=== PATIENT | male | born 1960 | race Caucasian/White ===

== ENCOUNTER 2016-07-08 08:53 | Emergency (ER) | payer BC, OTHER ==
[2016-07-08] MEDS ORDERED: TORAdol 30 mg Injection IM ONE (09:09)
[2016-07-08] MEDS ORDERED: TORAdol 30 mg Injection ONE (09:12)
--- NOTE | 2016-07-08 09:15 | ERPHSYRPT ---
- History of Present Illness Time Seen by Provider: 07/08/16 09:05 Source: patient Exam Limitations: clinical condition Patient Subjective Stated Complaint: back pain/lt hip pain Triage Nursing Assessment: states his city truck has caused him lower back pain/ lt hip pain radiating to outer lt upper leg. no injury. no bruising or sweleling noted. states since last night pain has not relieved Physician History: PATIENT WITH A HISTORY OF HYPERTENSION COMPLAINS OF ACUTE ONSET OF LOW BACK PAIN FOR 5 DAYS WITH RADIATION TO LEFT HIP. DENIES TRAUMA, INJURY, LOSS OF BOWEL OR BLADDER DYSFUNCTION. ADMITS TO HEAVY LIFTING DAILY. Timing/Duration: day(s) Method of Injury: lifting Quality: radiating, sharp Back Pain Location: lumbar spine Back Pain Radiation: buttocks (LEFT HIP) Severity of Pain-Max: moderate Severity of Pain-Current: moderate Modifying Factors: Improves With: movement Associated Symptoms: muscle spasms, other (RADIATION PAIN TO LEFT HIP) Previous symptoms: no prior history Allergies/Adverse Reactions: No Known Drug Allergies Allergy (Unverified 07/08/16 08:58) Home Medications: Lisinopril 20 mg [Zestril 20 MG] 20 mg PO DAILY 07/08/16 [History] Hx Tetanus, Diphtheria Vaccination/Date Given: Yes Hx Influenza Vaccination/Date Given: No Hx Pneumococcal Vaccination/Date Given: No Immunizations Up to Date: Yes - Review of Systems Constitutional: No Symptoms, No Fever, No Chills Eyes: No Symptoms Ears, Nose, & Throat: No Symptoms Respiratory: No Cough, No Dyspnea Cardiac: No Chest Pain, No Edema, No Syncope Abdominal/Gastrointestinal: No Abdominal Pain, No Nausea, No Vomiting, No Diarrhea Genitourinary Symptoms: No Dysuria Musculoskeletal: Back Pain Skin: No Rash Neurological: No Dizziness, No Focal Weakness, No Sensory Changes Psychological: No Symptoms Endocrine: No Symptoms All Other Systems: Reviewed and Negative - Past Medical History Pertinent Past Medical History: Yes Cardiac History: High Cholesterol, Hypertension - Past Surgical History Past Surgical History: No - Social History Smoking Status: Current every day smoker Exposure to second hand smoke: No Drug Use: none Patient Lives Alone: No - Nursing Vital Signs Temperature: 97.6 F Temperature Source: Oral Pulse Rate: 67 Respiratory Rate: 18 Pain Intensity: 10 - Physical Exam General Appearance: no apparent distress, alert Eye Exam: PERRL/EOMI, eyes nml inspection Neck Exam: normal inspection, non-tender, supple, full range of motion, No meningismus, No midline tenderness Respiratory Exam: normal breath sounds, lungs clear, No respiratory distress Cardiovascular Exam: regular rate/rhythm, normal heart sounds Gastrointestinal Exam: soft, No tenderness, No mass Back Exam: normal inspection, decreased range of motion, muscle spasm, point tenderness (LEFT PARASPINAL TENDERNESS L-3 TO L-5, LEFT SACROILIAC JOINT TENDERNESS) Extremity Exam: normal inspection, normal range of motion, No calf tenderness, No pedal edema Peripheral Pulses: carotid (R): 2+, carotid (L): 2+, femoral (R): 2+, femoral (L ): 2+, dorsalis-pedis (R): 2+, dorsalis-pedis (L): 2+ Neurologic Exam: alert, oriented x 3, cooperative, technician's helper II-XII nml as tested, normal mood/affect, nml station & gait, sensation nml, No motor deficits Skin Exam: normal color, warm, dry, No rash Lymphatic Exam: adenopathy SpO2 Interpretation: normal - Radiology Exams L-Spine X-ray Interpretation: Discussed w/ radiologist (MODERATE L-5 TO S1 DEGENERATIVE DISC DISEASE, MILD BILATERAL L5 TO S1 DEGENERATIVE FACET ARTHROPATHY, NO ACUTE FRACTURE OR SUBLUXATION) Ordered Tests: Active Orders 24 hr Category Date Time Status LUMBAR COMPLETE (MIN 4 VIEWS) Stat Exams 07/08/16 09:09 Taken Medication Summary Discontinued Medications Generic Name Dose Route Start Last Admin Trade Name Desiree PRN Reason Stop Dose Admin Ketorolac Tromethamine 60 mg 07/08/16 09:09 07/08/16 09:13 Toradol 30 Mg Injection IM 07/08/16 09:10 60 mg STAT ONE Administration Ketorolac Tromethamine Confirm 07/08/16 09:12 Toradol 30 Mg Injection Administered 07/08/16 09:13 Dose 60 mg .ROUTE .STK-MED ONE - Progress Progress: pain not gone completely Progress Note: 07/08/16 09:15 PATIENT GIVEN TORADOL 60MG IM Counseled pt/family regarding: diagnosis, rad results - Departure Time of Disposition: 10:00 Departure Disposition: Home Clinical Impression: LOW BACK PAIN, DEGENERATIVE ARTHRITIS Condition: Stable Critical Care Time: No Referrals: RANDALL NAIR [Primary Care Provider] - Additional Instructions: FOLLOWUP WITH YOUR FAMILY PHYSICIAN FOR EVALUATION AND TREATMENT. AVOID LIFTING OVER 10 POUNDS FOR 1 WEEK. NORFLEX 100GM TWICE DAILY FOR MUSCLE SPASM. TORADOL 10MG EVERY 6 HOURS FOR MILD TO MODERATE PAIN. NORCO 10/325 EVERY 4 HOURS FOR SEVERE PAIN. AVOID DRIVING MOTOR VEHICLES OR HANDLING POWER EQUIPMENT WHILE TAKING NORCO. Prescriptions: Hydrocodone/APAP 10/325 mg [[place] 10/325 MG Tablet] 1 tab PO Q4H PRN PRN # 15 tablet PRN Reason: Pain Ketorolac Tromethamine [Toradol] 10 mg PO Q6H PRN PRN #20 tablet PRN Reason: Pain Orphenadrine Citrate 100 mg [Norflex 100 MG Tablet] 100 mg PO BID #14 tab
--- NOTE | 2016-07-08 09:48 | XRAY ---
Indication: Low back pain. No known injury. Comparison: None 5 views of the lumbar spine demonstrates 5 lumbar vertebral segments in normal alignment with moderate L5-S1 degenerative disc disease, mild bilateral L5-S1 degenerative facet arthropathy, and tiny multilevel anterior endplate spurring. No acute fracture, subluxation, or pars interarticularis defect. Scattered aortic calcifications. Impression: Nonacute lumbar spine with chronic features.
[2016-07-08 09:57] VITALS: PULSE 67
[2016-07-08 09:58] VITALS: BP 141/80; O2SAT 95
== END 2016-07-08 09:50 | disposition home or self-care (01) ==
LOC: ED 08:53
DX: M54.5 Low back pain (principal); M19.90 Unspecified osteoarthritis, unspecified site; E78.00 Pure hypercholesterolemia, unspecified; I10 Essential (primary) hypertension
CPT/HCPCS: 72110; 96372; 99283; J1885